=== PATIENT | female | born 1970 | race Caucasian/White ===

== ENCOUNTER 2017-11-11 20:06 | Inpatient (IN) | payer SELFPAY ==
[~2017-11-11] VITALS: Ht 167.6 cm; Wt 80.6 kg
[2017-11-11 20:13] VITALS: BP 223/94; PULSE 123; RESP 21; TEMP 98.9; O2SAT 99
[2017-11-11] MEDS ORDERED: SODIUM CHLOR 0.9% 1000 ML INJ 1,000 ML IV SCH ×2 (20:22→22:42)
[2017-11-11] MEDS ORDERED: LORazepam 2 MG/ML VIAL IV PUSH ONE ×4 (20:30→22:45)
--- NOTE | 2017-11-11 20:32 | PD ---
HPI Chief Complaint: Alcohol/Drug Intoxication Time Seen by Provider: 20:13 Travel History International Travel<30 days: No Contact w/Intl Traveler<30days: No Traveled to known affect area: No History of Present Illness HPI This is a 47-year-old female presents via EMS for evaluation. The patient reports that she is from [place], on vacation, riding 2 days ago by car. She reports that today she bought a pill from someone on the street. She was under the impression that it was Adderall. This was at 11:30 AM today. Since then she has been feeling jittery and anxious, she has had a frontal headache which is aching and constant. She has had some nausea as well as dry mouth. On arrival she is tachycardic with a heart rate of 123, hypertensive with a blood pressure of 223/94. She denies any significant past medical history. She denies chest pain, shortness of breath, vomiting, abdominal pain, fevers or chills. She denies any other ingestions. She has no other complaints at this time. PFSH Past Medical History ?: Not Social History Tobacco Use: No (unable to obtain) Allergies-Medications (Allergen,Severity, Reaction): Coded Allergies: No Known Allergies (Unverified , 11/11/17) Reported Meds & Prescriptions Reported Meds & Active Scripts Active No Active Prescriptions or Reported Medications Review of Systems Except as stated in HPI: all other systems reviewed are Neg Physical Exam Narrative GENERAL: Well-developed well-nourished female no acute distress answering questions appropriately. Hypertensive and tachycardic. SKIN: Warm and dry. HEAD: Atraumatic. Normocephalic. EYES: Pupils equal and round 3 mm round reactive to light, extraocular muscles are intact. No scleral icterus. No injection or drainage. ENT: No nasal bleeding or discharge. Mucous membranes pink and moist. NECK: Trachea midline. No JVD. CARDIOVASCULAR: Regular rate and rhythm. No murmur appreciated. RESPIRATORY: No accessory muscle use. Clear to auscultation. Breath sounds equal bilaterally. GASTROINTESTINAL: Abdomen soft, non-tender, nondistended. Hepatic and splenic margins not palpable. MUSCULOSKELETAL: No obvious deformities. No clubbing. No cyanosis. No edema. NEUROLOGICAL: Awake and alert. No obvious cranial nerve deficits. Motor grossly within normal limits. Normal speech. Tremulous PSYCHIATRIC: Appropriate mood and affect; insight and judgment normal. Data Data Last Documented VS Vital Signs Date Time Temp Pulse Resp B/P (MAP) Pulse Ox O2 Delivery O2 Flow Rate FiO2 11/12/17 01:00 87 16 118/70 (86) 100 Room Air 100 11/11/17 20:13 98.9 Orders Orders Electrocardiogram (11/11/17 20:22) Basic Metabolic Panel (Bmp) (11/11/17 20:22) Complete Blood Count With Diff (11/11/17 20:22) Creatine Kinase (Cpk) (11/11/17 20:22) Thyroid Stimulating Hormone (11/11/17 20:22) Ct Brain W/O Iv Contrast(Rout) (11/11/17 20:22) Blood Glucose (11/11/17 20:22) Ecg Monitoring (11/11/17 20:22) Iv Access Insert/Monitor (11/11/17 20:22) Sodium Chlor 0.9% 1000 Ml Inj (Ns 1000 M (11/11/17 20:22) Drug Screen, Random Urine (11/11/17 20:22) Alcohol (Ethanol) (11/11/17 20:22) Tylenol (Acetaminophen) (11/11/17 20:22) Salicylates (Aspirin) (11/11/17 20:22) Lorazepam Inj (Ativan Inj) (11/11/17 20:30) Lorazepam Inj (Ativan Inj) (11/11/17 21:30) CKMB (11/11/17 20:40) CKMB% (11/11/17 20:40) Lorazepam Inj (Ativan Inj) (11/11/17 22:30) Sodium Chlor 0.9% 1000 Ml Inj (Ns 1000 M (11/11/17 22:42) Lorazepam Inj (Ativan Inj) (11/11/17 22:45) Restraints Non-Violent EDUAR.Q3H (11/11/17 23:00) Cath For Specimen (11/11/17 23:00) Etomidate Inj (Amidate Inj) (11/11/17 23:35) Succinylcholine Inj (Quelicin Inj) (11/11/17 23:35) Propofol 1000 Mg/100 Ml Inj (Diprivan 10 (11/11/17 23:45) Fentanyl Drip (Fentanyl Drip) (11/11/17 23:45) Chest, Single Ap (11/11/17 23:45) Urinary Catheter Insert/Apply (11/11/17 23:45) Cordell-Gastric Tube Insert/Mon (11/11/17 23:45) Propofol 1000 Mg/100 Ml Inj (Diprivan 10 (11/11/17 23:49) Sodium Chlor 0.9% 1000 Ml Inj (Ns 1000 M (11/12/17 00:15) Sputum Culture And Gram Stain (11/12/17 00:06) Fentanyl Drip (Fentanyl Drip) (11/12/17 00:07) Etomidate Inj (Amidate Inj) (11/12/17 00:15) Succinylcholine Inj (Quelicin Inj) (11/12/17 00:15) Sodium Chlor 0.9% 1000 Ml Inj (Ns 1000 M (11/12/17 00:30) Arterial Blood Gas (Abg) (11/12/17 ) Midazolam 100 Mg/100 Ml Inj (Versed Inj) (11/12/17 00:45) Sodium Chlor 0.9% 1000 Ml Inj (Ns 1000 M (11/12/17 00:45) Resp Ventilation- Volume (11/12/17 ) Admit Order (Ed Use Only) (11/12/17 01:19) Labs Laboratory Tests Test 11/11/17 20:40 11/11/17 23:30 11/12/17 00:50 White Blood Count 15.5 TH/MM3 Red Blood Count 4.89 MIL/MM3 Hemoglobin 13.3 GM/DL Hematocrit 39.6 % Mean Corpuscular Volume 81.0 FL Mean Corpuscular Hemoglobin 27.2 PG Mean Corpuscular Hemoglobin Concent 33.5 % Red Cell Distribution Width 15.3 % Platelet Count 217 TH/MM3 Mean Platelet Volume 7.0 FL Neutrophils (%) (Auto) 90.3 % Lymphocytes (%) (Auto) 5.5 % Monocytes (%) (Auto) 3.9 % Eosinophils (%) (Auto) 0.1 % Basophils (%) (Auto) 0.2 % Neutrophils # (Auto) 14.0 TH/MM3 Lymphocytes # (Auto) 0.9 TH/MM3 Monocytes # (Auto) 0.6 TH/MM3 Eosinophils # (Auto) 0.0 TH/MM3 Basophils # (Auto) 0.0 TH/MM3 CBC Comment AUTO DIFF Differential Comment AUTO DIFF CONFIRMED Blood Urea Nitrogen 18 MG/DL Creatinine 0.74 MG/DL Random Glucose 147 MG/DL Calcium Level 8.8 MG/DL Sodium Level 140 MEQ/L Potassium Level 3.5 MEQ/L Chloride Level 109 MEQ/L Carbon Dioxide Level 19.1 MEQ/L Anion Gap 12 MEQ/L Estimat Glomerular Filtration Rate 85 ML/MIN Total Creatine Kinase 440 U/L Creatine Kinase MB 6.4 NG/ML Creatine Kinase MB % 1.5 % Thyroid Stimulating Hormone 3rd Gen 0.635 uIU/ML Salicylates Level LESS THAN 1.7 MG/DL Acetaminophen Level LESS THAN 2.0 MCG/ML Ethyl Alcohol Level LESS THAN 3 MG/DL Urine Opiates Screen NEG Urine Barbiturates Screen NEG Urine Amphetamines Screen POS Urine Benzodiazepines Screen NEG Urine Cocaine Screen NEG Urine Cannabinoids Screen NEG Blood Gas Puncture Site RT RADIAL Blood Gas Patient Temperature 98.6 Blood Gas HCO3 20 mmol/L Blood Gas Base Excess -4.9 mmol/L Blood Gas Oxygen Saturation 98 % Arterial Blood pH 7.34 Arterial Blood Partial Pressure CO2 38 mmHg Arterial Blood Partial Pressure O2 390 mmHg Arterial Blood Oxygen Content 15.9 Vol % Arterial Blood Carboxyhemoglobin 1.4 % Arterial Blood Methemoglobin 1.0 % Blood Gas Hemoglobin 10.9 G/DL Oxygen Delivery Device VENTILATOR Blood Gas Ventilator Setting AC/16/550/PEEP5 Blood Gas Inspired Oxygen 100 % [facility] Medical Decision Making Medical Screen Exam Complete: Yes Emergency Medical Condition: Yes Medical Record Reviewed: Yes Differential Diagnosis Sympathomimetic drug abuse versus anticholinergic syndrome versus intracranial hemorrhage versus polysubstance abuse Narrative Course The patient was placed on ECG monitoring pulse oximetry. 12-lead EKG was obtained revealing sinus tachycardia with left axis deviation. Lab work, CT the brain is been ordered. The patient be given IV fluids and Ativan. The patient's blood pressure quickly normalized. She continues to be very tremulous and agitated and additional doses of Ativan were ordered. CBC reveals WBC count of 15.5 with 90% neutrophils. BMP reveals glucose 147, chloride 109, total CK is 440. Tylenol, salicylate, alcohol levels were negative. The patient required additional doses of Ativan and eventually required soft restraints for her safety. Pending CT imaging of the brain, drug screen, reevaluation once her symptoms are improving, this patient is being signed out to Dr. Randolph. Scripts No Active Prescriptions or Reported Meds Miky Eckert Nov 11, 2017 20:32
[2017-11-11 21:04] LABS: BASOPHIL % 0.2 % (0.0-2.0); EOSINOPHIL % 0.1 % (0.0-4.0); HEMATOCRIT 39.6 % (35.0-46.0); HEMOGLOBIN 13.3 GM/DL (11.6-15.3); LYMPH % 5.5 % (9.0-44.0); LYMPHOCYTE # 0.9 TH/MM3 (1.0-4.8); MEAN CORPUSCULAR HEMOGLOBIN 27.2 PG (27.0-34.0); MEAN CORPUSCULAR HGB CONC 33.5 % (32.0-36.0); MONO % 3.9 % (0.0-8.0); MONOCYTE # 0.6 TH/MM3 (0-0.9); NEUT % 90.3 % (16.0-70.0); PLATELET COUNT 217 TH/MM3 (150-450); RED BLOOD COUNT 4.89 MIL/MM3 (4.00-5.30); RED CELL DISTRIBUTION WIDTH 15.3 % (11.6-17.2); WHITE BLOOD COUNT 15.5 TH/MM3 (4.0-11.0)
[2017-11-11 21:20] LABS: BICARBONATE 19.1 MEQ/L (21.0-32.0); BLOOD UREA NITROGEN 18 MG/DL (7-18); CALCIUM 8.8 MG/DL (8.5-10.1); CHLORIDE 109 MEQ/L (98-107); CREATININE 0.74 MG/DL (0.50-1.00); GLOMERULAR FILTRATION RATE 85 ML/MIN (>89); GLUCOSE,RANDOM 147 MG/DL (74-106); SODIUM (NA) 140 MEQ/L (136-145)
[2017-11-11 21:30] LABS: ACETAMINOPHEN LESS THAN 2.0 MCG/ML (10.0-30.0)
[2017-11-11 22:00] VITALS: BP 143/77; PULSE 115; RESP 20; O2SAT 100
[2017-11-11 23:00] VITALS: BP 138/74; PULSE 105; RESP 16; O2SAT 100
[2017-11-11] MEDS ORDERED: SUCCINYLCHOLINE CHLORIDE 200 MG/10 ML VIAL ONE (23:35)
[2017-11-11] MEDS ORDERED: ETOMIDATE 40 MG/20 ML VIAL ONE (23:35)
[2017-11-11 23:45] VITALS: O2SAT 100
[2017-11-11] MEDS ORDERED: fentaNYL DRIP 250 ML IV PRN (23:45)
[2017-11-11] MEDS ORDERED: PROPOFOL 1000 MG/100 ML INJ 100 ML IV PRN (23:45)
--- NOTE | 2017-11-11 23:45 | EKG ---
Date Performed: 11/11/2017 Time Performed: 20:17:05 PTAGE: 47 years EKG: SINUS TACHYCARDIA MARKED LEFT AXIS DEVIATION LOW QRS VOLTAGE IN PRECORDIAL LEADS INCOMPLETE RIGHT BUNDLE BRANCH BLOCK POSSIBLE ANTERIOR MYOCARDIAL INFARCTION ABNORMAL ECG NO PREVIOUS TRACING DOCTOR: Ronald Dominguez Interpretating Date/Time 11/11/2017 23:43:26
[2017-11-11] MEDS ORDERED: PROPOFOL 1000 MG/100 ML INJ 100 ML ONE (23:49)
--- NOTE | 2017-11-11 23:51 | PD ---
Physical Exam Narrative Patient was seen by me and my social service assistant. Patient continued to be agitated and foaming from the mouth. Patient was given repeated doses of Ativan. Data Data Last Documented VS Vital Signs Date Time Temp Pulse Resp B/P (MAP) Pulse Ox O2 Delivery O2 Flow Rate FiO2 11/12/17 01:00 87 16 118/70 (86) 100 Room Air 100 11/11/17 20:13 98.9 Orders Orders Electrocardiogram (11/11/17 20:22) Basic Metabolic Panel (Bmp) (11/11/17 20:22) Complete Blood Count With Diff (11/11/17 20:22) Creatine Kinase (Cpk) (11/11/17 20:22) Thyroid Stimulating Hormone (11/11/17 20:22) Ct Brain W/O Iv Contrast(Rout) (11/11/17 20:22) Blood Glucose (11/11/17 20:22) Ecg Monitoring (11/11/17 20:22) Iv Access Insert/Monitor (11/11/17 20:22) Sodium Chlor 0.9% 1000 Ml Inj (Ns 1000 M (11/11/17 20:22) Drug Screen, Random Urine (11/11/17 20:22) Alcohol (Ethanol) (11/11/17 20:22) Tylenol (Acetaminophen) (11/11/17 20:22) Salicylates (Aspirin) (11/11/17 20:22) Lorazepam Inj (Ativan Inj) (11/11/17 20:30) Lorazepam Inj (Ativan Inj) (11/11/17 21:30) CKMB (11/11/17 20:40) CKMB% (11/11/17 20:40) Lorazepam Inj (Ativan Inj) (11/11/17 22:30) Sodium Chlor 0.9% 1000 Ml Inj (Ns 1000 M (11/11/17 22:42) Lorazepam Inj (Ativan Inj) (11/11/17 22:45) Restraints Non-Violent EDUAR.Q3H (11/11/17 23:00) Cath For Specimen (11/11/17 23:00) Etomidate Inj (Amidate Inj) (11/11/17 23:35) Succinylcholine Inj (Quelicin Inj) (11/11/17 23:35) Propofol 1000 Mg/100 Ml Inj (Diprivan 10 (11/11/17 23:45) Fentanyl Drip (Fentanyl Drip) (11/11/17 23:45) Chest, Single Ap (11/11/17 23:45) Urinary Catheter Insert/Apply (11/11/17 23:45) Cordell-Gastric Tube Insert/Mon (11/11/17 23:45) Propofol 1000 Mg/100 Ml Inj (Diprivan 10 (11/11/17 23:49) Sodium Chlor 0.9% 1000 Ml Inj (Ns 1000 M (11/12/17 00:15) Sputum Culture And Gram Stain (11/12/17 00:06) Fentanyl Drip (Fentanyl Drip) (11/12/17 00:07) Etomidate Inj (Amidate Inj) (11/12/17 00:15) Succinylcholine Inj (Quelicin Inj) (11/12/17 00:15) Sodium Chlor 0.9% 1000 Ml Inj (Ns 1000 M (11/12/17 00:30) Arterial Blood Gas (Abg) (11/12/17 ) Midazolam 100 Mg/100 Ml Inj (Versed Inj) (11/12/17 00:45) Sodium Chlor 0.9% 1000 Ml Inj (Ns 1000 M (11/12/17 00:45) Resp Ventilation- Volume (11/12/17 ) Admit Order (Ed Use Only) (11/12/17 01:19) Labs Laboratory Tests Test 11/11/17 20:40 11/11/17 23:30 11/12/17 00:50 White Blood Count 15.5 TH/MM3 Red Blood Count 4.89 MIL/MM3 Hemoglobin 13.3 GM/DL Hematocrit 39.6 % Mean Corpuscular Volume 81.0 FL Mean Corpuscular Hemoglobin 27.2 PG Mean Corpuscular Hemoglobin Concent 33.5 % Red Cell Distribution Width 15.3 % Platelet Count 217 TH/MM3 Mean Platelet Volume 7.0 FL Neutrophils (%) (Auto) 90.3 % Lymphocytes (%) (Auto) 5.5 % Monocytes (%) (Auto) 3.9 % Eosinophils (%) (Auto) 0.1 % Basophils (%) (Auto) 0.2 % Neutrophils # (Auto) 14.0 TH/MM3 Lymphocytes # (Auto) 0.9 TH/MM3 Monocytes # (Auto) 0.6 TH/MM3 Eosinophils # (Auto) 0.0 TH/MM3 Basophils # (Auto) 0.0 TH/MM3 CBC Comment AUTO DIFF Differential Comment AUTO DIFF CONFIRMED Blood Urea Nitrogen 18 MG/DL Creatinine 0.74 MG/DL Random Glucose 147 MG/DL Calcium Level 8.8 MG/DL Sodium Level 140 MEQ/L Potassium Level 3.5 MEQ/L Chloride Level 109 MEQ/L Carbon Dioxide Level 19.1 MEQ/L Anion Gap 12 MEQ/L Estimat Glomerular Filtration Rate 85 ML/MIN Total Creatine Kinase 440 U/L Creatine Kinase MB 6.4 NG/ML Creatine Kinase MB % 1.5 % Thyroid Stimulating Hormone 3rd Gen 0.635 uIU/ML Salicylates Level LESS THAN 1.7 MG/DL Acetaminophen Level LESS THAN 2.0 MCG/ML Ethyl Alcohol Level LESS THAN 3 MG/DL Urine Opiates Screen NEG Urine Barbiturates Screen NEG Urine Amphetamines Screen POS Urine Benzodiazepines Screen NEG Urine Cocaine Screen NEG Urine Cannabinoids Screen NEG Blood Gas Puncture Site RT RADIAL Blood Gas Patient Temperature 98.6 Blood Gas HCO3 20 mmol/L Blood Gas Base Excess -4.9 mmol/L Blood Gas Oxygen Saturation 98 % Arterial Blood pH 7.34 Arterial Blood Partial Pressure CO2 38 mmHg Arterial Blood Partial Pressure O2 390 mmHg Arterial Blood Oxygen Content 15.9 Vol % Arterial Blood Carboxyhemoglobin 1.4 % Arterial Blood Methemoglobin 1.0 % Blood Gas Hemoglobin 10.9 G/DL Oxygen Delivery Device VENTILATOR Blood Gas Ventilator Setting AC/16/550/PEEP5 Blood Gas Inspired Oxygen 100 % MDM Supervised Visit with LINDSAY: Yes Narrative Course Patient continued to be agitated and foaming from the mouth despite repeat doses of Ativan. Patient was intubated to protect airway and sedation. IV fluid normal saline solution 125 cc an hour. Propofol and fentanyl drip for sedation. Critical Care Narrative Aggregate critical care time was 60 minutes. Time to perform other separately billable procedures was not included in the critical care time. My time did not include minutes spent treating any other patients simultaneously or on activities that did not directly contribute to the patient's treatment. The services I provided to this patient were to treat and/or prevent clinically significant deterioration that could result in: I provided critical care services requiring my management, as noted below: Chart data review, documentation time, medication orders and management, vital sign assessments/reviewing monitor data, ordering and reviewing lab tests, ordering and interpreting/reviewing x-rays and diagnostic studies, care of the patient and discussion of the patient with the admitting physicians. Procedures Procedure Narrative After the risks and benefits were discussed the following procedure was performed: INTUBATION: The patient was put in optimal position for the procedure. Rapid sequence intubation was initiated by me using 20 milligrams of etomidate IV and 100 milligrams of succinylcholine IV. The patient was intubated with a 7.5 cuffed endotracheal tube. Tube placement was confirmed by visualization of the tube and balloon passing through the cords, capnometry and subsequent chest x- ray. Breath sounds were equal and well aerated bilaterally postintubation. No breath sounds over stomach. Patient tolerated procedure well. Diagnosis Primary Impression: Respiratory failure Qualified Codes: J96.01 - Acute respiratory failure with hypoxia; J96.02 - Acute respiratory failure with hypercapnia Additional Impression: Drug overdose Qualified Codes: T50.901A - Poisoning by unspecified drugs, medicaments and biological substances, accidental (unintentional), initial encounter Admitting Information Admitting Physician Requests: Admit Patricio Randolph MD Nov 11, 2017 23:51
[2017-11-12] VITALS (25 sets, daily range): BP systolic 97–159; BP diastolic 55–76; PULSE 77–114; RESP 11–27; TEMP 98.2–99.9; O2SAT 96–100
[2017-11-12] MEDS ORDERED: fentaNYL DRIP 250 ML ONE (00:07)
[2017-11-12] MEDS ORDERED: ETOMIDATE 20 MG/10 ML VIAL IV PUSH ONE (00:15)
[2017-11-12] MEDS ORDERED: SUCCINYLCHOLINE CHLORIDE 100 MG/5 ML SYRINGE IV PUSH ONE (00:15)
[2017-11-12] MEDS: SODIUM CHLOR 0.9% 1000 ML INJ 1,000 ML IV ONE ×2 (00:15→00:18)
--- NOTE | 2017-11-12 00:16 | RADRPT ---
EXAM DATE/TIME: 11/11/2017 23:52 [facility] COMPARISON: No previous studies available for comparison. INDICATIONS : ET Tube placement. MEDICAL HISTORY : None. SURGICAL HISTORY : None. ENCOUNTER: Initial ACUITY: 1 day PAIN SCORE: 0/10 LOCATION: Bilateral chest FINDINGS: A single view of the chest demonstrates endotracheal tube in satisfactory position. NG enters stomach . Mild basilar dependent atelectasis in the lungs. No significant effusion. No pneumothorax. CONCLUSION: 1. Endotracheal tube in good position. NG enters stomach. Tye Yousif MD on November 12, 2017 at 0:14 Board Certified Radiologist. This report was verified electronically.
[2017-11-12] MEDS ORDERED: SODIUM CHLOR 0.9% 1000 ML INJ 1,000 ML IV SCH (00:30)
[2017-11-12] MEDS ORDERED: MIDAZOLAM 100 MG/100 ML INJ 100 ML IV PRN (00:45)
[2017-11-12] MEDS ORDERED: SODIUM CHLOR 0.9% 1000 ML INJ 1,000 ML IV ONE (00:45)
--- NOTE | 2017-11-12 02:06 | HHI.HP ---
HPI Service Critical Care Medicine Primary Care Physician Unknown Admission Diagnosis Drug overdose Diagnosis: Travel History International Travel<30 Days: No Contact w/Intl Traveler <30 Da: No Traveled to Known Affected Are: No History of Present Illness 47-year-old female presents to emergency department via EMS. She reports that she is from [place], on vacation, riding 2 days ago by car. She reports that today she bought a pill from someone on the street. She was under the impression that it was Adderall. This was at 11:30 AM today. Since then she has been feeling jittery and anxious, she has had a frontal headache which is aching and constant. She has had some nausea as well as dry mouth. On arrival to the emergency department she was tachycardic with a heart rate of 123, hypertensive with a blood pressure of 223/94. She denied any significant past medical history. She was extremely combative in the emergency department and was intubated by ED attending for an airway protection. Review of Systems ROS Unable to obtain patient sedated and intubated Past Family Social History Allergies: Coded Allergies: No Known Allergies (Unverified , 11/11/17) Past Medical History No per chart documentation Past Surgical History None documented Active Ordered Medications Current Medications Medications (Trade) Dose Ordered Sig/Layo Route PRN Reason Start Time Stop Time Status Last Admin Dose Admin Fentanyl Citrate 250 ml @ 5 mls/hr TITRATE PRN IV SEDATION 11/11/17 23:45 11/12/17 00:12 Midazolam HCl 100 ml @ 2 mls/hr TITRATE PRN IV SEDATION 11/12/17 00:45 Sodium Chloride 1,000 ml @ 124 mls/hr Q8H4M IV 11/12/17 02:01 Sodium Chloride (NS Flush) 2 ml UNSCH PRN IV FLUSH FLUSH AFTER USING IV ACCESS 11/12/17 02:15 Sodium Chloride (NS Flush) 2 ml BID IV FLUSH 11/12/17 09:00 Acetaminophen (Tylenol) 650 mg Q6H PRN PO PAIN 1-10 AND/OR FEVER >101F 11/12/17 02:15 Famotidine (Pepcid Inj) 20 mg Q12HR IV PUSH 11/12/17 09:00 Lorazepam (Ativan Inj) 1 mg Q1H PRN IV PUSH Agitation/Sedation 11/12/17 02:15 Artificial Tears (Tears Naturale Opth Soln) 1 drop TID EACH EYE 11/12/17 09:00 Ondansetron HCl (Zofran Inj) 4 mg Q6H PRN IV PUSH NAUSEA OR VOMITING 11/12/17 02:15 Albuterol/ Ipratropium (Duoneb Neb) 1 ampule Q2HR NEB PRN INH WHEEZING 11/12/17 02:15 Enoxaparin Sodium (Lovenox Inj) 40 mg Q24H SQ 11/12/17 09:00 Miscellaneous Information 1 Q361D XX 11/12/17 02:15 Chlorhexidine Gluconate (Chlorhexidine 2% Cloth) 3 pack Taper DAILY@04 TOP 11/12/17 04:00 11/08/18 03:59 Chlorhexidine Gluconate (Chlorhexidine 2% Cloth) 3 pack UNSCH PRN TOP HYGIENIC CARE 11/12/17 02:15 Senna/Docusate Sodium (Vianey-Colace) 1 tab BID PO 11/12/17 09:00 Magnesium Hydroxide (Milk Of Magnesia Liq) 30 ml Q12H PRN PO Mild constipation 11/12/17 02:15 Sennosides (Senokot) 17.2 mg Q12H PRN PO Moderate constipation 11/12/17 02:15 Bisacodyl (Dulcolax Supp) 10 mg DAILY PRN RECTAL SEVERE CONSITIPATION 11/12/17 02:15 Lactulose (Lactulose Liq) 30 ml DAILY PRN PO SEVERE CONSITIPATION 11/12/17 02:15 Chlorhexidine Gluconate (Peridex 0.12% Liq) 15 ml BID@08,20 MT 11/12/17 08:00 Propofol 100 ml @ 2.4 mls/hr TITRATE PRN IV SEDATION 11/12/17 02:15 Family History Unable to obtain Social History Unable to obtain Physical Exam Vital Signs Vital Signs Date Time Temp Pulse Resp B/P (MAP) Pulse Ox O2 Delivery O2 Flow Rate FiO2 11/11/17 23:45 100 100 11/11/17 20:13 98.9 123 21 223/94 (137) 99 Physical Exam GENERAL: Sedated and intubated SKIN: Warm and dry. HEAD: Normocephalic. EYES: No scleral icterus. No injection or drainage. NECK: Supple, trachea midline. No JVD or lymphadenopathy. CARDIOVASCULAR: Regular rate and rhythm without murmurs, gallops, or rubs. RESPIRATORY: Breath sounds equal bilaterally. No accessory muscle use. GASTROINTESTINAL: Abdomen soft, non-tender, nondistended. MUSCULOSKELETAL: No cyanosis, or edema. BACK: Nontender without obvious deformity. NEURO EXAM: Mental Status: The patient is sedated and intubated Cranial Nerves: Pupils are round, reactive to light. Laboratory Laboratory Tests Test 11/11/17 20:40 11/11/17 23:30 11/12/17 00:50 White Blood Count 15.5 Red Blood Count 4.89 Hemoglobin 13.3 Hematocrit 39.6 Mean Corpuscular Volume 81.0 Mean Corpuscular Hemoglobin 27.2 Mean Corpuscular Hemoglobin Concent 33.5 Red Cell Distribution Width 15.3 Platelet Count 217 Mean Platelet Volume 7.0 Neutrophils (%) (Auto) 90.3 Lymphocytes (%) (Auto) 5.5 Monocytes (%) (Auto) 3.9 Eosinophils (%) (Auto) 0.1 Basophils (%) (Auto) 0.2 Neutrophils # (Auto) 14.0 Lymphocytes # (Auto) 0.9 Monocytes # (Auto) 0.6 Eosinophils # (Auto) 0.0 Basophils # (Auto) 0.0 CBC Comment AUTO DIFF Differential Comment AUTO DIFF CONFIRMED Blood Urea Nitrogen 18 Creatinine 0.74 Random Glucose 147 Calcium Level 8.8 Sodium Level 140 Potassium Level 3.5 Chloride Level 109 Carbon Dioxide Level 19.1 Anion Gap 12 Estimat Glomerular Filtration Rate 85 Total Creatine Kinase 440 Creatine Kinase MB 6.4 Creatine Kinase MB % 1.5 Thyroid Stimulating Hormone 3rd Gen 0.635 Salicylates Level LESS THAN 1.7 Acetaminophen Level LESS THAN 2.0 Ethyl Alcohol Level LESS THAN 3 Urine Opiates Screen NEG Urine Barbiturates Screen NEG Urine Amphetamines Screen POS Urine Benzodiazepines Screen NEG Urine Cocaine Screen NEG Urine Cannabinoids Screen NEG Blood Gas Puncture Site RT RADIAL Blood Gas Patient Temperature 98.6 Blood Gas HCO3 20 Blood Gas Base Excess -4.9 Blood Gas Oxygen Saturation 98 Arterial Blood pH 7.34 Arterial Blood Partial Pressure CO2 38 Arterial Blood Partial Pressure O2 390 Arterial Blood Oxygen Content 15.9 Arterial Blood Carboxyhemoglobin 1.4 Arterial Blood Methemoglobin 1.0 Blood Gas Hemoglobin 10.9 Oxygen Delivery Device VENTILATOR Blood Gas Ventilator Setting AC/16/550/PEEP5 Blood Gas Inspired Oxygen 100 Date/Time Source Procedure Growth Status 11/12/17 00:10 Sputum Endotracheal Gram Stain Pending Received 11/12/17 00:10 Sputum Endotracheal Sputum Culture Pending Received Result Diagram: 11/11/17203911/11/172039 Imaging Last 24 hours Impressions Chest X-Ray 11/11/175 Signed Impressions: Service Date/Time: Saturday, November 11, 2017 23:52 - CONCLUSION: 1. Endotracheal tube in good position. NG enters stomach. Tye Yousif MD Septic Shock Reassessment Septic shock perfusion: reassessment completed Caprini VTE Risk Assessment Caprini VTE Risk Assessment: Mod/High Risk (score >= 2) Caprini Risk Assessment Model Point Value = 1 Point Value = 2 Point Value = 3 Point Value = 5 Age 41-60 Minor surgery BMI > 25 kg/m2 Swollen legs Varicose veins or History of unexplained or recurrent spontaneous Oral contraceptives or hormone replacement Sepsis (< 1 month) Serious lung disease, including pneumonia (< 1 month) Abnormal pulmonary function Acute myocardial infarction Congestive heart failure (< 1 month) History of inflammatory bowel disease Medical patient at bed rest Age 61-74 Arthroscopic surgery Major open surgery (> 45 min) Laparoscopic surgery (> 45 min) Malignancy Confined to bed (> 72 hours) Immobilizing plaster cast Central venous access Age >= 75 History of VTE Family history of VTE Factor V Leiden Prothrombin [id number] Lupus anticoagulant Anticardiolipin antibodies Elevated serum homocysteine Heparin-induced thrombocytopenia Other congenital or acquired thrombophilia Stroke (< 1 month) Elective arthroplasty Hip, pelvis, or leg fracture Acute spinal cord injury (< 1 month) Prophylaxis Regimen Total Risk Factor Score Risk Level Prophylaxis Regimen 0-1 Low Early ambulation 2 Moderate Order ONE of the following: *Sequential Compression Device (SCD) *Heparin 5000 units SQ BID 3-4 Higher Order ONE of the following medications: *Heparin 5000 units SQ TID *Enoxaparin/Lovenox 40 mg SQ daily (WT < 150 kg, CrCl > 30 mL/min) *Enoxaparin/Lovenox 30 mg SQ daily (WT < 150 kg, CrCl > 10-29 mL/min) *Enoxaparin/Lovenox 30 mg SQ BID (WT < 150 kg, CrCl > 30 mL/min) AND/OR *Sequential Compression Device (SCD) 5 or more Highest Order ONE of the following medications: *Heparin 5000 units SQ TID (Preferred with Epidurals) *Enoxaparin/Lovenox 40 mg SQ daily (WT < 150 kg, CrCl > 30 mL/min) *Enoxaparin/Lovenox 30 mg SQ daily (WT < 150 kg, CrCl > 10-29 mL/min) *Enoxaparin/Lovenox 30 mg SQ BID (WT < 150 kg, CrCl > 30 mL/min) AND *Sequential Compression Device (SCD) Assessment and Plan Assessment and Plan Respiratory failure -Intubated for airway protection -SBT and weaning when it neurologically improve -Vent bundle -DuoNeb's as needed Altered mental status -Intoxication -Drug screen positive for amphetamines -Benzos as needed -Supportive care -CT head negative Metabolic acidosis -Due to above -Aggressive IV fluid hydration -Monitor trend Leukocytosis -Reactive -No other symptoms of infection -No antibiotics indicated DVT GI prophylaxis -Darren's and SCDs -Lovenox -Pepcid Critical Care: The total critical care time was 35 minutes. Time to perform other separately billable procedures was not included in the critical care time. Elmer Kumar MD Nov 12, 2017 2:06 am
[2017-11-12] MEDS ORDERED: LORazepam 2 MG/ML VIAL IV PUSH PRN (02:15)
[2017-11-12] MEDS ORDERED: MISCELLANEOUS NURSING INFORMATION XX SCH (02:15)
[2017-11-12] MEDS ORDERED: ONDANSETRON HCL 4 MG/2 ML VIAL IV PUSH PRN (02:15)
[2017-11-12] MEDS ORDERED: LACTULOSE SYRUP 20 GM/30 ML CUP PO PRN (02:15)
[2017-11-12] MEDS ORDERED: SENNOSIDES 8.6 MG TAB PO PRN (02:15)
[2017-11-12] MEDS ORDERED: BISACODYL 10 MG SUPP RECTAL PRN (02:15)
[2017-11-12] MEDS ORDERED: ACETAMINOPHEN 325 MG TAB PO PRN (02:15)
[2017-11-12] MEDS ORDERED: RESP: ALBUTEROL 2.5 MG/IPRATROPIUM 0.5 MG NEB (PRN) INH (02:15)
[2017-11-12] MEDS ORDERED: SODIUM CHLORIDE 0.9% FLUSH 10 ML FLUSH IV FLUSH PRN (02:15)
[2017-11-12] MEDS ORDERED: CHLORHEXIDINE GLUCONATE 2 % 1 PACK (2 CLOTHS) TOP PRN (02:15)
[2017-11-12] MEDS ORDERED: PROPOFOL 1000 MG/100 ML INJ 100 ML IV PRN (02:15)
[2017-11-12] MEDS ORDERED: MAGNESIUM HYDROXIDE SUSP 30 ML CUP PO PRN (02:15)
--- NOTE | 2017-11-12 02:53 | RADRPT ---
EXAM DATE/TIME: 11/12/2017 02:24 [facility] COMPARISON: No previous studies available for comparison. INDICATIONS : Altered mental status. Overdose. RADIATION DOSE: CTDIvol (mGy) MEDICAL HISTORY : None SURGICAL HISTORY : None. ENCOUNTER: Initial ACUITY: 1 day PAIN SCALE: Non-responsive LOCATION: cranial TECHNIQUE: Multiple contiguous axial images were obtained of the head. Using automated exposure control and adj ustment of the mA and/or kV according to patient size, radiation dose was kept as low as reasonably a chievable to obtain optimal diagnostic quality images. DICOM format image data is available electro nically for review and comparison. FINDINGS: CEREBRUM: The ventricles are normal for age. No evidence of midline shift, mass lesion, hemorrhage or acute in farction. No extra-axial fluid collections are seen. POSTERIOR FOSSA: The cerebellum and brainstem are intact. The 4th ventricle is midline. The cerebellopontine angle i s unremarkable. EXTRACRANIAL: The visualized portion of the orbits is intact. SKULL: The calvaria is intact. No evidence of skull fracture. CONCLUSION: 1. No acute intracranial abnormalities. Tye Yousif MD on November 12, 2017 at 2:51 Board Certified Radiologist. This report was verified electronically.
[2017-11-12] MEDS: CHLORHEXIDINE GLUCONATE 2 % 1 PACK (2 CLOTHS) TOP SCH ×2 (03:41→21:12)
[2017-11-12] MEDS: SODIUM CHLOR 0.9% 1000 ML INJ 1,000 ML IV SCH ×3 (03:42→18:09)
[2017-11-12 07:54] LABS: ALBUMIN 3.2 GM/DL (3.4-5.0); ALKALINE PHOSPHATASE 41 U/L (45-117); ALT (GPT) 27 U/L (10-53); AST (GOT) 34 U/L (15-37); BICARBONATE 22.4 MEQ/L (21.0-32.0); BLOOD UREA NITROGEN 11 MG/DL (7-18); CALCIUM 7.7 MG/DL (8.5-10.1); CHLORIDE 111 MEQ/L (98-107); CREATININE 0.45 MG/DL (0.50-1.00); GLOMERULAR FILTRATION RATE 151 ML/MIN (>89); GLUCOSE,RANDOM 99 MG/DL (74-106); PHOSPHORUS 2.3 MG/DL (2.5-4.9); SODIUM (NA) 142 MEQ/L (136-145); TOTAL BILIRUBIN ADULT 1.1 MG/DL (0.2-1.0); TOTAL PROTEIN 6.5 GM/DL (6.4-8.2)
[2017-11-12 08:34] LABS: AUTOMATED NEUTROPHIL # 4.6 TH/MM3 (1.8-7.7); BASOPHIL % 0.4 % (0.0-2.0); EOSINOPHIL % 0.4 % (0.0-4.0); HEMATOCRIT 35.5 % (35.0-46.0); HEMOGLOBIN 11.9 GM/DL (11.6-15.3); LYMPHOCYTE # 3.1 TH/MM3 (1.0-4.8); MEAN CELL VOLUME 82.2 FL (80.0-100.0); MEAN CORPUSCULAR HEMOGLOBIN 27.5 PG (27.0-34.0); MEAN CORPUSCULAR HGB CONC 33.5 % (32.0-36.0); MEAN PLATELET VOLUME 6.6 FL (7.0-11.0); MONO % 9.6 % (0.0-8.0); MONOCYTE # 0.8 TH/MM3 (0-0.9); NEUT % 53.6 % (16.0-70.0); PLATELET COUNT 221 TH/MM3 (150-450); RED BLOOD COUNT 4.32 MIL/MM3 (4.00-5.30); RED CELL DISTRIBUTION WIDTH 15.2 % (11.6-17.2); WHITE BLOOD COUNT 8.5 TH/MM3 (4.0-11.0)
[2017-11-12 08:50] LABS: ALBUMIN 3.2 GM/DL (3.4-5.0); ALT (GPT) 29 U/L (10-53); AST (GOT) 25 U/L (15-37); BICARBONATE 22.2 MEQ/L (21.0-32.0); BLOOD UREA NITROGEN 11 MG/DL (7-18); CALCIUM 7.6 MG/DL (8.5-10.1); CHLORIDE 111 MEQ/L (98-107); CREATININE 0.46 MG/DL (0.50-1.00); GLOMERULAR FILTRATION RATE 147 ML/MIN (>89); GLUCOSE,RANDOM 82 MG/DL (74-106); MAGNESIUM 1.8 MG/DL (1.5-2.5); PHOSPHORUS 2.4 MG/DL (2.5-4.9); SODIUM (NA) 142 MEQ/L (136-145)
[2017-11-12 08:52] LABS: ALKALINE PHOSPHATASE 44 U/L (45-117); TOTAL BILIRUBIN ADULT 1.2 MG/DL (0.2-1.0); TOTAL PROTEIN 6.7 GM/DL (6.4-8.2)
[2017-11-12] MEDS ORDERED: POTASSIUM CHLOR 40 MEQ PREMIX 100 ML IV PRN ×2 (09:00)
[2017-11-12] MEDS ORDERED: MAGNESIUM SULFATE INJ 2 GM in SODIUM CHLORIDE 0.9% INJ 96 ML IV PRN (09:00)
[2017-11-12] MEDS ORDERED: POTASSIUM PHOSPHATE MONOBASIC 500 MG TAB PO PRN (09:00)
[2017-11-12] MEDS ORDERED: SODIUM PHOSPHATE INJ 30 MMOL in SODIUM CHLOR 0.9% 250 ML INJ 240 ML IV PRN (09:00)
[2017-11-12] MEDS ORDERED: MAGNESIUM OXIDE 400 MG TAB PO PRN (09:00)
[2017-11-12] MEDS ORDERED: POTASSIUM PHOSPHATE MONOBASIC 500 MG TAB PO/TUBE PRN (09:00)
[2017-11-12] MEDS ORDERED: POTASSIUM CHLORIDE 25 MEQ EFFERVESCENT TAB PO PRN (09:00)
[2017-11-12] MEDS ORDERED: MAGNESIUM SULFATE INJ 4 GM in SODIUM CHLORIDE 0.9% INJ 92 ML IV PRN (09:00)
[2017-11-12] MEDS ORDERED: POTASSIUM CHLOR 20 MEQ PREMIX 100 ML IV PRN ×2 (09:00)
[2017-11-12] MEDS: ARTIFICIAL TEARS OPTH SOLN 15 ML BTL EACH EYE SCH ×3 (09:00→18:00)
[2017-11-12] MEDS ORDERED: POTASSIUM PHOSPHATE INJ 30 MMOL in SODIUM CHLOR 0.9% 250 ML INJ 250 ML IV PRN (09:00)
[2017-11-12] MEDS: CHLORHEXIDINE 0.12% (ORAL KIT) 15 ML CUP MT SCH ×2 (09:19→20:00)
[2017-11-12] MEDS: SODIUM CHLORIDE 0.9% FLUSH 10 ML FLUSH IV FLUSH SCH ×2 (09:20→21:12)
[2017-11-12] MEDS: ENOXAPARIN SODIUM 40 MG/0.4 ML SYRINGE SQ SCH (09:20)
[2017-11-12] MEDS: FAMOTIDINE 20 MG/2 ML VIAL IV PUSH SCH ×2 (09:20→21:12)
[2017-11-12] MEDS: DOCUSATE SODIUM 50 MG/SENNA 8.6 MG TAB PO SCH ×2 (09:20→21:00)
[2017-11-12] MEDS: RESP: ALBUTEROL 2.5 MG/IPRATROPIUM 0.5 MG NEB (SCH) NEB ×2 (15:13→21:25)
[2017-11-13] VITALS (26 sets, daily range): BP systolic 100–148; BP diastolic 56–74; PULSE 88–104; RESP 18–25; TEMP 99–99.8; O2SAT 95–100
[2017-11-13] MEDS: SODIUM CHLOR 0.9% 1000 ML INJ 1,000 ML IV SCH ×3 (00:43→21:18)
[2017-11-13 04:06] LABS: INTERNATIONAL NORMALIZED RATIO 1.2 RATIO; PROTHROMBIN TIME - PATIENT 11.8 SEC (9.8-11.6)
[2017-11-13 04:11] LABS: ALBUMIN 3.1 GM/DL (3.4-5.0); ALT (GPT) 30 U/L (10-53); AST (GOT) 49 U/L (15-37); BLOOD UREA NITROGEN 8 MG/DL (7-18); CALCIUM 7.9 MG/DL (8.5-10.1); CHLORIDE 111 MEQ/L (98-107); CREATININE 0.43 MG/DL (0.50-1.00); GLOMERULAR FILTRATION RATE 159 ML/MIN (>89); GLUCOSE,RANDOM 91 MG/DL (74-106); MAGNESIUM 1.9 MG/DL (1.5-2.5); PHOSPHORUS 2.7 MG/DL (2.5-4.9); SODIUM (NA) 141 MEQ/L (136-145)
[2017-11-13 04:12] LABS: BASOPHIL % 0.3 % (0.0-2.0); HEMATOCRIT 37.1 % (35.0-46.0); HEMOGLOBIN 12.3 GM/DL (11.6-15.3); LYMPH % 16.7 % (9.0-44.0); LYMPHOCYTE # 2.4 TH/MM3 (1.0-4.8); MEAN CELL VOLUME 83.7 FL (80.0-100.0); MEAN CORPUSCULAR HEMOGLOBIN 27.7 PG (27.0-34.0); MEAN CORPUSCULAR HGB CONC 33.1 % (32.0-36.0); MEAN PLATELET VOLUME 7.3 FL (7.0-11.0); MONOCYTE # 0.7 TH/MM3 (0-0.9); PLATELET COUNT 250 TH/MM3 (150-450); RED BLOOD COUNT 4.44 MIL/MM3 (4.00-5.30); RED CELL DISTRIBUTION WIDTH 15.8 % (11.6-17.2); WHITE BLOOD COUNT 14.1 TH/MM3 (4.0-11.0)
[2017-11-13 04:14] LABS: ALKALINE PHOSPHATASE 43 U/L (45-117); TOTAL BILIRUBIN ADULT 1.3 MG/DL (0.2-1.0); TOTAL PROTEIN 6.8 GM/DL (6.4-8.2)
[2017-11-13] MEDS: RESP: ALBUTEROL 2.5 MG/IPRATROPIUM 0.5 MG NEB (SCH) NEB ×3 (04:14→22:04)
--- NOTE | 2017-11-13 07:16 | HHI.CCPN ---
Subjective Remarks/Hospital Course 47-year-old female presents to emergency department via EMS. She reports that she is from [place], on vacation, riding 2 days ago by car. She reports that today she bought a pill from someone on the street. She was under the impression that it was Adderall. This was at 11:30 AM today. Since then she has been feeling jittery and anxious, she has had a frontal headache which is aching and constant. She has had some nausea as well as dry mouth. On arrival to the emergency department she was tachycardic with a heart rate of 123, hypertensive with a blood pressure of 223/94. She denied any significant past medical history. She was extremely combative in the emergency department and was intubated by ED attending for an airway protection. 11/13 Patient s/p extubation yesterday placed on BIPAP overnight. Awake. T:99.8 Objective Vital Signs Date Time Temp Pulse Resp B/P (MAP) Pulse Ox O2 Delivery O2 Flow Rate FiO2 11/13/17 06:00 92 11/13/17 04:14 100 45 11/13/17 04:00 99.0 19 124/56 (78) 11/12/17 14:15 Nasal Cannula 2.00 Intake and Output 11/13/17 11/13/17 11/14/17 08:00 16:00 00:00 Output Total 650 ml Balance -650 ml Result Diagram: 11/13/17 0247 11/13/17 0247 Other Results Last Impressions Chest X-Ray 11/11/172344 Signed Impressions: Service Date/Time: Saturday, November 11, 2017 23:52 - CONCLUSION: 1. Endotracheal tube in good position. NG enters stomach. Tye Yousif MD Head CT 11/11/172021 Signed Impressions: Service Date/Time: Sunday, November 12, 2017 02:24 - CONCLUSION: 1. No acute intracranial abnormalities. Tye Yousif MD Imaging Last 24 hours Impressions Chest X-Ray 11/11/172344 Signed Impressions: Service Date/Time: Saturday, November 11, 2017 23:52 - CONCLUSION: 1. Endotracheal tube in good position. NG enters stomach. Tye Yousif MD Objective Remarks GENERAL: Patient is 47 yo lying in bed in NAD SKIN: Warm and dry. HEAD: Normocephalic. EYES: No scleral icterus. No injection or drainage. NECK: Supple, trachea midline. No JVD or lymphadenopathy. CARDIOVASCULAR: Regular rate and rhythm without murmurs, gallops, or rubs. RESPIRATORY: Breath sounds equal bilaterally. No accessory muscle use. GASTROINTESTINAL: Abdomen soft, non-tender, nondistended. MUSCULOSKELETAL: No cyanosis, or edema. Neuro: Awake A/P Assessment and Plan Respiratory failure s/p extubation 11/13 Altered mental status Drug overdose Leukocytosis Drug overdose Plan Neuro: Monitor neuro status. CT brain: No acute abnormalities. UDS: + Amphetamines Pulm: Continue with oxygen keep sats >92% Bronchodilators NIPPV PRN for resp distress CV: Monitor HR and BP keep MAP>65mmHG Check Lactic acid : Monitor renal function, electrolytes replacement per protocol Decrease NS@75ml/hr GI: On Pepcid for GI prophylaxis. Speech eval, diet per speech ID: Monitor for signs of infections ( Fever, WBC) Check BC, UA Heme: Monitor CBC Endo: SSI for glycemic control DVT GI prophylaxis -Darren's and SCDs -Lovenox -Pepcid Will sign off and transfer care to [facility] Level 2 Bernadette Fine MD Nov 13, 2017 07:16
[2017-11-13] MEDS: FAMOTIDINE 20 MG/2 ML VIAL IV PUSH SCH ×2 (08:02→21:18)
[2017-11-13] MEDS: ENOXAPARIN SODIUM 40 MG/0.4 ML SYRINGE SQ SCH (08:02)
[2017-11-13] MEDS: DOCUSATE SODIUM 50 MG/SENNA 8.6 MG TAB PO SCH ×2 (08:02→21:18)
[2017-11-13] MEDS: SODIUM CHLORIDE 0.9% FLUSH 10 ML FLUSH IV FLUSH SCH ×2 (08:03→21:18)
[2017-11-13] MEDS: ARTIFICIAL TEARS OPTH SOLN 15 ML BTL EACH EYE SCH ×3 (08:03→17:46)
[2017-11-13] MEDS: CHLORHEXIDINE 0.12% (ORAL KIT) 15 ML CUP MT SCH ×2 (08:04→19:00)
[2017-11-13] MEDS: CHLORHEXIDINE GLUCONATE 2 % 1 PACK (2 CLOTHS) TOP SCH (21:40)
[2017-11-14] VITALS (12 sets, daily range): BP systolic 119–151; BP diastolic 56–69; PULSE 86–97; RESP 17–34; TEMP 98.6–99.7; O2SAT 93–100
[2017-11-14] MEDS: RESP: ALBUTEROL 2.5 MG/IPRATROPIUM 0.5 MG NEB (SCH) NEB ×3 (04:32→15:17)
[2017-11-14 05:56] LABS: ALBUMIN 2.5 GM/DL (3.4-5.0); ALKALINE PHOSPHATASE 45 U/L (45-117); ALT (GPT) 39 U/L (10-53); AST (GOT) 90 U/L (15-37); BICARBONATE 20.7 MEQ/L (21.0-32.0); BLOOD UREA NITROGEN 3 MG/DL (7-18); CALCIUM 8.3 MG/DL (8.5-10.1); CHLORIDE 108 MEQ/L (98-107); GLOMERULAR FILTRATION RATE 173 ML/MIN (>89); GLUCOSE,RANDOM 138 MG/DL (74-106); MAGNESIUM 1.8 MG/DL (1.5-2.5); PHOSPHORUS 1.4 MG/DL (2.5-4.9); SODIUM (NA) 138 MEQ/L (136-145); TOTAL BILIRUBIN ADULT 0.7 MG/DL (0.2-1.0); TOTAL PROTEIN 6.2 GM/DL (6.4-8.2)
[2017-11-14 06:09] LABS: AUTOMATED NEUTROPHIL # 6.6 TH/MM3 (1.8-7.7); BASOPHIL % 0.2 % (0.0-2.0); EOSINOPHIL % 0.5 % (0.0-4.0); HEMATOCRIT 34.5 % (35.0-46.0); HEMOGLOBIN 11.9 GM/DL (11.6-15.3); LYMPH % 20.2 % (9.0-44.0); LYMPHOCYTE # 1.8 TH/MM3 (1.0-4.8); MEAN CELL VOLUME 80.6 FL (80.0-100.0); MEAN CORPUSCULAR HEMOGLOBIN 27.7 PG (27.0-34.0); MEAN CORPUSCULAR HGB CONC 34.4 % (32.0-36.0); MEAN PLATELET VOLUME 7.2 FL (7.0-11.0); MONOCYTE # 0.5 TH/MM3 (0-0.9); NEUT % 73.1 % (16.0-70.0); PLATELET COUNT 187 TH/MM3 (150-450); RED BLOOD COUNT 4.27 MIL/MM3 (4.00-5.30); RED CELL DISTRIBUTION WIDTH 15.3 % (11.6-17.2)
[2017-11-14] MEDS: CHLORHEXIDINE 0.12% (ORAL KIT) 15 ML CUP MT SCH (08:00)
--- NOTE | 2017-11-14 08:23 | HHI.PR ---
Subjective Remarks Follow-up respiratory failure/drug overdose November 14, 2017-patient seen and examined, alert and oriented 3. Denies any significant shortness of breath. No dizziness or chest pain. Afebrile. Objective Vitals Vital Signs Date Time Temp Pulse Resp B/P (MAP) Pulse Ox O2 Delivery O2 Flow Rate FiO2 11/14/17 06:00 86 11/14/17 04:00 97 11/14/17 04:00 99.2 97 20 129/63 (85) 93 11/14/17 02:00 95 11/14/17 00:00 97 11/14/17 00:00 99.7 97 20 134/60 (84) 96 11/13/17 22:05 95 Nasal Cannula 11/13/17 22:00 104 11/13/17 20:00 99.5 103 20 132/60 (84) 96 11/13/17 20:00 103 11/13/17 18:00 98 11/13/17 17:00 100 21 136/61 (86) 95 11/13/17 16:40 100 21 133/60 (84) 96 11/13/17 16:00 101 11/13/17 16:00 99.4 101 23 128/68 (88) 100 11/13/17 15:00 96 21 134/58 (83) 100 11/13/17 14:00 96 21 118/56 (76) 100 11/13/17 14:00 96 11/13/17 13:01 97 21 132/60 (84) 100 11/13/17 13:00 96 21 100 11/13/17 12:00 99.6 97 20 100/74 (83) 100 11/13/17 12:00 97 11/13/17 11:00 97 22 121/59 (79) 100 11/13/17 10:01 97 22 129/62 (84) 99 11/13/17 10:00 97 25 98 11/13/17 10:00 97 11/13/17 09:00 96 20 127/62 (83) 100 11/13/17 08:41 100 35 11/13/17 08:41 100 BiPAP 35 I/O 11/13/17 11/13/17 11/13/17 11/14/17 11/14/17 11/14/17 07:00 15:00 23:00 07:00 15:00 23:00 Intake Total 1241 ml 1000 ml Output Total 650 ml 1250 ml 850 ml Balance -650 ml 1241 ml -250 ml -850 ml Intake IV Total 1241 ml 1000 ml Output Urine Total 650 ml 1250 ml 850 ml # Bowel Movements 0 0 Result Diagram: 11/14/17 0435 11/14/17 0435 Imaging Last Impressions Chest X-Ray 11/11/17 2345 Signed Impressions: Service Date/Time: Saturday, November 11, 2017 23:52 - CONCLUSION: 1. Endotracheal tube in good position. NG enters stomach. Tye Yousif MD Head CT 11/11/172021 Signed Impressions: Service Date/Time: Sunday, November 12, 2017 02:24 - CONCLUSION: 1. No acute intracranial abnormalities. Tye Yousif MD Objective Remarks GENERAL: NAD SKIN: Warm and dry. HEAD: Normocephalic. EYES: No scleral icterus. No injection or drainage. NECK: Supple, trachea midline. No JVD or lymphadenopathy. CARDIOVASCULAR: Regular rate and rhythm without murmurs, gallops, or rubs. RESPIRATORY: Breath sounds equal bilaterally. No accessory muscle use. GASTROINTESTINAL: Abdomen soft, non-tender, nondistended. MUSCULOSKELETAL: No cyanosis, or edema. BACK: Nontender without obvious deformity. No CVA tenderness. A/P Problem List: (1) Respiratory failure ICD Code: J96.90 - Respiratory failure, unspecified, unspecified whether with hypoxia or hypercapnia Status: Acute (2) Drug overdose ICD Code: T50.901A - Poisoning by unspecified drugs, medicaments and biological substances, accidental (unintentional), initial encounter Status: Acute Assessment and Plan 47 years old female with Respiratory failure s/p extubation 11/13 Continue with oxygen keep sats >92% Bronchodilators NIPPV PRN for resp distress Toxic encephalopathy /altered mental status-resolved Monitor neuro status. CT brain: No acute abnormalities. UDS: + Amphetamines Leukocytosis Resolved Drug overdose Counseled against Advance diet Hep-Lock IV fluid DVT GI prophylaxis -Darren's and SCDs -Lovenox -Pepcid Problem Qualifiers (1) Respiratory failure: Qualified Codes: J96.01 - Acute respiratory failure with hypoxia; J96.02 - Acute respiratory failure with hypercapnia (2) Drug overdose: Qualified Codes: T50.901A - Poisoning by unspecified drugs, medicaments and biological substances, accidental (unintentional), initial encounter Mainor Hwang MD Nov 14, 2017 08:23
[2017-11-14] MEDS: ARTIFICIAL TEARS OPTH SOLN 15 ML BTL EACH EYE SCH ×2 (09:00→12:05)
[2017-11-14] MEDS: SODIUM CHLORIDE 0.9% FLUSH 10 ML FLUSH IV FLUSH SCH (09:00)
[2017-11-14] MEDS: FAMOTIDINE 20 MG/2 ML VIAL IV PUSH SCH (09:00)
[2017-11-14] MEDS: DOCUSATE SODIUM 50 MG/SENNA 8.6 MG TAB PO SCH (09:00)
[2017-11-14] MEDS: ENOXAPARIN SODIUM 40 MG/0.4 ML SYRINGE SQ SCH (09:00)
--- NOTE | 2017-11-14 10:01 | HHI.DS ---
Discharge Summary Admission Date Nov 12, 2017 at 01:21 Discharge Date: Nov 14, 2017 Admitting Diagnosis Drug overdose (1) Respiratory failure ICD Code: J96.90 - Respiratory failure, unspecified, unspecified whether with hypoxia or hypercapnia Status: Acute (2) Drug overdose ICD Code: T50.901A - Poisoning by unspecified drugs, medicaments and biological substances, accidental (unintentional), initial encounter Status: Acute Brief History - From Admission 47-year-old female presents to emergency department via EMS. She reports that she is from [place], on vacation, riding 2 days ago by car. She reports that today she bought a pill from someone on the street. She was under the impression that it was Adderall. This was at 11:30 AM today. Since then she has been feeling jittery and anxious, she has had a frontal headache which is aching and constant. She has had some nausea as well as dry mouth. On arrival to the emergency department she was tachycardic with a heart rate of 123, hypertensive with a blood pressure of 223/94. She denied any significant past medical history. She was extremely combative in the emergency department and was intubated by ED attending for an airway protection. CBC/BMP: 11/14/17 0435 11/14/17 0435 Significant Findings Laboratory Tests Test 11/11/17 20:40 11/11/17 23:30 11/12/17 00:50 11/12/17 03:10 White Blood Count 15.5 TH/MM3 (4.0-11.0) Neutrophils (%) (Auto) 90.3 % (16.0-70.0) Lymphocytes (%) (Auto) 5.5 % (9.0-44.0) Neutrophils # (Auto) 14.0 TH/MM3 (1.8-7.7) Lymphocytes # (Auto) 0.9 TH/MM3 (1.0-4.8) Random Glucose 147 MG/DL (74-106) Chloride Level 109 MEQ/L (98-107) Carbon Dioxide Level 19.1 MEQ/L (21.0-32.0) Estimat Glomerular Filtration Rate 85 ML/MIN (>89) Total Creatine Kinase 440 U/L (26-192) Creatine Kinase MB 6.4 NG/ML (0.5-3.6) Salicylates Level LESS THAN 1.7 MG/DL Acetaminophen Level LESS THAN 2.0 MCG/ML Urine Amphetamines Screen POS (NEG) Blood Gas HCO3 20 mmol/L (22-26) Blood Gas Base Excess -4.9 mmol/L (-2-2) Arterial Blood pH 7.34 (7.380-7.420) Arterial Blood Partial Pressure O2 390 mmHg (61-120) Blood Gas Hemoglobin 10.9 G/DL (12.0-16.0) Test 11/12/17 05:07 11/12/17 05:30 11/12/17 08:00 11/12/17 13:34 Blood Gas HCO3 21 mmol/L (22-26) 21 mmol/L (22-26) Blood Gas Base Excess -3.1 mmol/L (-2-2) -4.1 mmol/L (-2-2) Arterial Blood Partial Pressure CO2 36 mmHg (38-42) 43 mmHg (38-42) Arterial Blood Partial Pressure O2 219 mmHg (61-120) 446 mmHg (61-120) Blood Gas Hemoglobin 11.1 G/DL (12.0-16.0) 11.3 G/DL (12.0-16.0) Creatinine 0.45 MG/DL (0.50-1.00) 0.46 MG/DL (0.50-1.00) Albumin 3.2 GM/DL (3.4-5.0) 3.2 GM/DL (3.4-5.0) Calcium Level 7.7 MG/DL (8.5-10.1) 7.6 MG/DL (8.5-10.1) Phosphorus Level 2.3 MG/DL (2.5-4.9) 2.4 MG/DL (2.5-4.9) Alkaline Phosphatase 41 U/L (45-117) 44 U/L (45-117) Total Bilirubin 1.1 MG/DL (0.2-1.0) 1.2 MG/DL (0.2-1.0) Chloride Level 111 MEQ/L (98-107) 111 MEQ/L (98-107) Mean Platelet Volume 6.6 FL (7.0-11.0) Monocytes (%) (Auto) 9.6 % (0.0-8.0) Total Creatine Kinase 330 U/L (26-192) Creatine Kinase MB 6.0 NG/ML (0.5-3.6) Arterial Blood pH 7.31 (7.380-7.420) Test 11/12/17 19:49 11/13/17 02:47 11/13/17 10:30 11/14/17 04:35 Blood Gas HCO3 19 mmol/L (22-26) Blood Gas Base Excess -6.5 mmol/L (-2-2) Arterial Blood pH 7.31 (7.380-7.420) White Blood Count 14.1 TH/MM3 (4.0-11.0) Neutrophils (%) (Auto) 78.0 % (16.0-70.0) 73.1 % (16.0-70.0) Neutrophils # (Auto) 11.0 TH/MM3 (1.8-7.7) Prothrombin Time 11.8 SEC (9.8-11.6) Activated Partial Thromboplast Time 24.0 SEC (24.3-30.1) Creatinine 0.43 MG/DL (0.50-1.00) 0.40 MG/DL (0.50-1.00) Albumin 3.1 GM/DL (3.4-5.0) 2.5 GM/DL (3.4-5.0) Calcium Level 7.9 MG/DL (8.5-10.1) 8.3 MG/DL (8.5-10.1) Alkaline Phosphatase 43 U/L (45-117) Aspartate Amino Transf (AST/SGOT) 49 U/L (15-37) 90 U/L (15-37) Total Bilirubin 1.3 MG/DL (0.2-1.0) Chloride Level 111 MEQ/L (98-107) 108 MEQ/L (98-107) Carbon Dioxide Level 17.0 MEQ/L (21.0-32.0) 20.7 MEQ/L (21.0-32.0) Hematocrit 34.5 % (35.0-46.0) Blood Urea Nitrogen 3 MG/DL (7-18) Random Glucose 138 MG/DL (74-106) Total Protein 6.2 GM/DL (6.4-8.2) Phosphorus Level 1.4 MG/DL (2.5-4.9) Imaging Last Impressions Chest X-Ray 11/11/175 Signed Impressions: Service Date/Time: Saturday, November 11, 2017 23:52 - CONCLUSION: 1. Endotracheal tube in good position. NG enters stomach. Tye Yousif MD Head CT 11/11/172021 Signed Impressions: Service Date/Time: Sunday, November 12, 2017 02:24 - CONCLUSION: 1. No acute intracranial abnormalities. Tye Yousif MD PE at Discharge GENERAL: NAD SKIN: Warm and dry. HEAD: Normocephalic. EYES: No scleral icterus. No injection or drainage. NECK: Supple, trachea midline. No JVD or lymphadenopathy. CARDIOVASCULAR: Regular rate and rhythm without murmurs, gallops, or rubs. RESPIRATORY: Breath sounds equal bilaterally. No accessory muscle use. GASTROINTESTINAL: Abdomen soft, non-tender, nondistended. MUSCULOSKELETAL: No cyanosis, or edema. BACK: Nontender without obvious deformity. No CVA tenderness. Hospital Course Patient was initially under the care of clinical pharmacologist as patient was intubated extubated November 13, 2017. Respiratory status improved. Patient's mentation improved as well. Her diet was advanced accordingly. Vitals remained stable and all electrode abnormalities were corrected accordingly. DVT and GI prophylaxis were provided. Patient was counseled extensively against drug use. Pt Condition on Discharge: Good Discharge Disposition: Discharge Home Discharge Time: <= 30 minutes Discharge Instructions DIET: Follow Instructions for: As Tolerated, No Restrictions Activities you can perform: Regular-No Restrictions Follow up Referrals: PCP Follow-up - 1 Week Mainor Hwang MD Nov 14, 2017 10:01
== END 2017-11-14 16:30 | disposition home or self-care (01) | DRG 917 ==
LOC: NEPE 20:06 → NEDA 11-12 01:21 → HIMW 11-12 02:55
PROVIDERS: ADMIT Hospitalist; ATTEND Hospitalist
PROC: 0BH17EZ Insertion of Endotracheal Airway into Trachea, Via Natural or Artificial Opening (ICD-10-PCS; principal; 2017-11-11)
PROC: 5A1935Z Respiratory Ventilation, Less than 24 Consecutive Hours (ICD-10-PCS; 2017-11-11)
DX: T50.901A Poisoning by unspecified drugs, medicaments and biological substances, accidental (unintentional), initial encounter (principal); J96.01 Acute respiratory failure with hypoxia; G92 Toxic encephalopathy
CPT/HCPCS: 31500; 36600; 51702; 70450; 71045; 76937; 80048; 80053; 80307; 82550; 82552; 82805; 83605; 83735; 84100; 84443; 85025; 85610; 85730; 87070; 87205; 87641; 93005; 94002; 94003; 94150; 94640; 94664; 96361; 96365; 96368; 96375; 96376; J0330; J1650; J2060; J3010; J7030